=== PATIENT | male | born 1955 | race Caucasian/White ===

== ENCOUNTER 2018-06-04 13:12 | Outpatient (CLI) | payer OTHER ==
--- NOTE | 2018-06-04 15:33 | MRI ---
LEFT ELBOW MRI WITHOUT IV COTNRAST: HISTORY: A 63-year-old male with a history of left elbow pain for 5-6 years after lifting a tree with his left arm. FINDINGS: Multiplanar, multisequence MRI examination of the left elbow is performed. There is fairly marked mo tion artifact which degrades image quality. There is some focal superficial soft tissue subcutaneous thickening and fat stranding medially overlying the region of the common flexor tendon insertion reg ion. There are some less marked changes laterally at the level of the common extensor tendon inserti on. There appears to be some mild tendinopathy of both the common flexor and common extensor tendon insertions with no evidence for significant tear. There are some arthrosis changes, particularly of the radiocapitellar joint with some minimal hypertrophic osteophytosis and some subchondral cystic ch anges of the capitellum. The ulnar collateral ligament appears intact. Lateral collateral ligament complex appears intact. Biceps and triceps tendons appear intact. No other significant abnormal mar row signal. IMPRESSION: Some nonspecific subcutaneous swelling and fat stranding overlying the flexor and extensor tendon ins ertion regions as well as some associated tendinopathy without evidence of associated tear. Arthrosi s changes with some cartilage loss involving the radiocapitellar joint and some subchondral cystic ch anges and minimal hypertrophic osteophytosis of the capitellum. No evidence for other significant in ternal derangement. POS: [facility]
== END 2018-06-04 13:13 | disposition home or self-care (01) ==
LOC: SCSMRI 13:12
PROVIDERS: ATTEND Orthopaedic Surgery
DX: M25.522 Pain in left elbow (principal); M19.022 Primary osteoarthritis, left elbow; M67.922 Unspecified disorder of synovium and tendon, left upper arm; M25.722 Osteophyte, left elbow; M79.89 Other specified soft tissue disorders

== ENCOUNTER 2018-07-03 21:02 | Emergency (ER) | payer OTHER ==
[2018-07-03] MEDS ORDERED: Pantoprazole 40 MG VIAL ONE ×2 (21:29→21:41)
[2018-07-03 21:46] LABS: #Eosinphils 0.1 thou/uL (0.0-0.7); #Lymphocytes 1.3 thou/uL (1.20-3.40); #Neutrophils 12.8 thou/uL (1.40-6.50); %Basophils 0.1 % (0.0-1.0); %Eosinophils 0.4 % (0.0-10.0); %Lymphocytes 8.3 % (21.0-51.0); %Monocytes 6.5 % (0.0-10.0); %Neutrophils 84.7 % (42.0-75.0); Hemoglobin 15.1 g/dL (14.0-18.0); Mean Corpuscular HGB CONC 33.6 g/dL (32.0-36.0); Mean Corpuscular Hemoglobin 29.4 pg (27.0-31.0); Mean Corpuscular Volume 87.6 fL (78.0-98.0); Mean Platelet Volume 7.8 fL (7.4-10.4); Platelet Count 209 thou/uL (130-400); Red Blood Cell (RBC) Count 5.14 mill/uL (4.70-6.10); White Blood Cell (WBC) Count 15.2 thou/uL (4.8-10.8)
[2018-07-03 22:07] LABS: ALT (SGPT) 30 U/L (8-55); AST (SGOT) 22 U/L (5-34); Albumin 4.4 g/dL (3.4-4.8); Alkaline Phosphatase 72 U/L (40-150); Anion Gap 12 mmol/L (10-20); BUN (Urea Nitrogen) 10 mg/dL (8.4-25.7); Bilirubin, Total 1.2 mg/dL (0.2-1.2); Calc. Creatinine Clearance 0 mL/min (70-130); Calcium 9.9 mg/dL (7.8-10.44); Carbon Dioxide 27 mmol/L (23-31); Chloride 102 mmol/L (98-107); Estimated GFR-MDRD 78; Globulin 3.4 g/dL (2.4-3.5); Glucose 138 mg/dL (80-115); Lipase 20 U/L (8-78); Potassium 4.2 mmol/L (3.5-5.1); Protein, Total 7.8 g/dL (5.8-8.1); Sodium 137 mmol/L (136-145)
[2018-07-03 22:08] LABS: Bilirubin Negative (Negative); Blood, Urine Negative (Negative); Clarity CLEAR (Clear); Glucose, Urine (Dipstick) Negative (Negative); Leukocyte Negative (Negative); Nitrite Negative (Negative); Protein, Urine (Dipstick) Negative (Neg-Trace); Specific Gravity, Urine 1.009 (1.002-1.036); Urobilinogen 0.2 mg/dL (0.2-1.0)
== END 2018-07-03 23:11 | disposition home or self-care (01) ==
LOC: ERS 21:02
DX: R10.13 Epigastric pain (principal); E11.9 Type 2 diabetes mellitus without complications
CPT/HCPCS: 80053; 81003; 82274; 83690; 85025; 86850; 86900; 86901; 96374; C9113

== ENCOUNTER 2018-07-17 09:39 | Outpatient (CLI) | payer OTHER ==
--- NOTE | 2018-07-17 13:44 | CT ---
CT ABDOMEN AND PELVIS WITHOUT IV CONTRAST: HISTORY: History of generalized abdominal pain with fever. COMPARISON: None. FINDINGS: There is a large, hypodense mass with peripheral enhancement involving the medial left hepatic lobe, on image 20 of series 2, measuring 5.5 cm. There is an additional small enhancing lesion within the medial left hepatic lobe, measuring 11 mm, on image 16 of series 2. There is mild gallbladder wall thickening. The pancreas and adrenal glands are unremarkable appearing. There is a 1.6 cm cyst involving the left mid kidney. There is a smaller 1 cm cyst within the superi or pole of the left kidney. The right kidney is normal appearing. The spleen is normal appearing. No free fluid or enlarged lymph nodes are evident. There is a normal appendix in the right lower quadrant. The prostate is mildly enlarged, measuring 5 .9 cm. The bladder, rectum, and perirectal soft tissues are unremarkable. There are a few scattered colonic diverticula, without evidence of active diverticulitis. The small bowel is normal appearing. No definite acute osseous abnormality is demonstrated. There is scattered degenerative and osteoarth ritic change. IMPRESSION: 1. Gallbladder wall thickening. Recommend correlation for acute cholecystitis. A right upper quadr ant ultrasound may be helpful for further evaluation. 2. Hypodense mass involving the left hepatic lobe is incompletely characterized. A follow-up CT of the abdomen, utilizing hemangioma protocol, is recommended. An additional enhancing mass is seen wit hin the left hepatic lobe, which may reflect a small capillary hemangioma. 3. Left renal cysts. 4. Diverticulosis. 5. Prostate enlargement. POS: [facility]
== END 2018-07-17 09:40 | disposition home or self-care (01) ==
LOC: SCSCT 09:39
PROVIDERS: ATTEND Family Medicine
DX: R10.84 Generalized abdominal pain (principal); R50.9 Fever, unspecified; N28.1 Cyst of kidney, acquired; N40.0 Benign prostatic hyperplasia without lower urinary tract symptoms; K57.30 Diverticulosis of large intestine without perforation or abscess without bleeding; R16.0 Hepatomegaly, not elsewhere classified; K82.9 Disease of gallbladder, unspecified
CPT/HCPCS: 74177

== ENCOUNTER 2018-07-31 07:39 | Outpatient (CLI) | payer OTHER ==
--- NOTE | 2018-07-31 09:51 | ULT ---
COMPLETE ABDOMINAL ULTRASOUND: Comparison: CT abdomen/pelvis 07-17-18. History: Mass was seen in the liver on CT. Technique: Multiplanar grayscale and color doppler images were obtained in a complete abdominal ultra sound. FINDINGS: There is an echogenic well circumscribed mass in the left lobe of the liver measuring 4.6 cm in great est dimension. This likely represents the mass seen in the anterior aspect of the liver on prior CT. This is nonspecific but could represent a hemangioma. The smaller mass on CT posterior to this larger mass was not definitely seen. No intrahepatic biliary dilatation is seen. The gallbladder is filled with stones and sludge. There is no gallbladder wall thickening or perichol ecystic fluid. Common bile duct is normal measuring 6 mm. The visualized portions of the pancreas are unremarkable. The aorta and inferior vena cava are normal in caliber. Spleen is normal in echogenicity without focal lesion and measures 9.3 cm in length. Multiple cysts are seen in the left kidney. The largest measures 2.0 cm in size. There is no evidence of hydronephrosis or shadowing calculi. The kidneys measure 11.2 and 11.5 cm on the right and left, respectively. IMPRESSION: 1. Hepatic mass may represent a hemangioma. 2. Cholelithiasis. 3. Left renal cyst. POS: [facility]
== END 2018-07-31 07:40 | disposition home or self-care (01) ==
LOC: SCSULT 07:39
PROVIDERS: ATTEND Family Medicine
DX: R10.10 Upper abdominal pain, unspecified (principal); R93.5 Abnormal findings on diagnostic imaging of other abdominal regions, including retroperitoneum; K80.20 Calculus of gallbladder without cholecystitis without obstruction; N28.1 Cyst of kidney, acquired; R16.0 Hepatomegaly, not elsewhere classified
CPT/HCPCS: 76700

== ENCOUNTER 2018-10-15 10:13 | Day surgery (SDC) | payer OTHER ==
[2018-10-12 12:21] VITALS: BMI 26.6
[2018-10-15] MEDS ORDERED: cefOXitin Sodium/Dextrose,Iso 2 GM in Premix Bag 1 BAG IVPB SCH (10:45)
[2018-10-15] MEDS ORDERED: Bupivacaine HCl 0.25%/Epi 0.0005/PF 10 ML VIAL FS ONE ×2 (10:55→10:56)
[2018-10-15] MEDS ORDERED: Iothalamate Meglumine 60% 50 ML VIAL FS ONE (10:55)
[2018-10-15 11:43] LABS: #Eosinphils 0.4 thou/uL (0.0-0.7); #Lymphocytes 1.9 thou/uL (1.20-3.40); #Monocytes 0.7 thou/uL (0.11-0.59); #Neutrophils 6.4 thou/uL (1.40-6.50); %Basophils 0.3 % (0.0-1.0); %Eosinophils 3.8 % (0.0-10.0); %Lymphocytes 19.9 % (21.0-51.0); %Monocytes 7.7 % (0.0-10.0); %Neutrophils 68.3 % (42.0-75.0); Hemoglobin 14.6 g/dL (14.0-18.0); Mean Corpuscular HGB CONC 33.5 g/dL (32.0-36.0); Mean Corpuscular Volume 86.7 fL (78.0-98.0); Mean Platelet Volume 7.8 fL (7.4-10.4); Platelet Count 218 thou/uL (130-400); Red Blood Cell (RBC) Count 5.04 mill/uL (4.70-6.10); White Blood Cell (WBC) Count 9.4 thou/uL (4.8-10.8)
[2018-10-15] MEDS ORDERED: Midazolam HCl 2 mg/2 ml Vial ONE (11:46)
[2018-10-15] MEDS ORDERED: Lidocaine 2% Jelly 5 ML TUBE ONE (11:46)
[2018-10-15] MEDS ORDERED: Fentanyl 100 MCG/2 ML VIAL ONE (11:46)
[2018-10-15 12:08] LABS: ALT (SGPT) 27 U/L (8-55); AST (SGOT) 19 U/L (5-34); Albumin 4.3 g/dL (3.4-4.8); Alkaline Phosphatase 80 U/L (40-150); Anion Gap 15 mmol/L (10-20); BUN (Urea Nitrogen) 11 mg/dL (8.4-25.7); Bilirubin, Direct 0.4 mg/dL (0.1-0.3); Bilirubin, Total 0.7 mg/dL (0.2-1.2); Calc. Creatinine Clearance 92 mL/min (70-130); Calcium 9.6 mg/dL (7.8-10.44); Carbon Dioxide 25 mmol/L (23-31); Chloride 104 mmol/L (98-107); Estimated GFR-MDRD 79; Globulin 2.6 g/dL (2.4-3.5); Glucose 143 mg/dL (80-115); Potassium 4.6 mmol/L (3.5-5.1); Protein, Total 6.9 g/dL (5.8-8.1); Sodium 139 mmol/L (136-145)
[2018-10-15] MEDS ORDERED: Dexamethasone 20 MG/5 ML VIAL ONE (15:00)
[2018-10-15] MEDS ORDERED: Esmolol 100 MG/10 ML VIAL ONE (15:00)
[2018-10-15] MEDS ORDERED: Glycopyrrolate 0.2 MG/ML 5 ML SYRINGE ONE ×2 (15:00)
[2018-10-15] MEDS ORDERED: Lidocaine 1% PF 5 ML VIAL ONE (15:00)
[2018-10-15] MEDS ORDERED: Rocuronium Bromide 10 MG/ML (10ML VIAL) ONE (15:00)
[2018-10-15] MEDS ORDERED: ePHEDrine/0.9% NaCl/PF SYRINGE 50 mg/10 ml ONE (15:00)
[2018-10-15] MEDS ORDERED: PROPOFOL 200 MG/20 ML VIAL ONE (15:00)
[2018-10-15] MEDS ORDERED: Ondansetron PF 4 MG/2 ML Vial ONE ×2 (15:00)
[2018-10-15] MEDS ORDERED: HYDROcodone/Acetaminophen 5/325 mg Tablet ONE (16:21)
[2018-10-15] MEDS ORDERED: Promethazine HCl 25 MG/ML VIAL ONE (16:29)
--- NOTE | 2018-10-23 14:54 | OP ---
DATE OF PROCEDURE: 10/15/2018 PREOPERATIVE DIAGNOSIS: Acute cholecystitis. POSTOPERATIVE DIAGNOSIS: Acute cholecystitis. PROCEDURE PERFORMED: Laparoscopic cholecystectomy with intraoperative drain placement. ANESTHESIA: General. ESTIMATED BLOOD LOSS: Minimal. COMPLICATIONS: None. SPECIMEN: None. FINDINGS: Severe acute cholecystitis. DESCRIPTION OF PROCEDURE: The patient was taken to the operating room and laid supine on the operating room table. After general anesthetic was obtained, the abdomen was prepped and draped in a sterile fashion. A curved incision was made below the umbilicus. Cautery was used to dissect down to the umbilical fascia. Umbilical fascia was incised and held up using a Masha. The abdominal cavity was entered using a Nadine clamp. Holding stitch of Vicryl was placed on each side of the fascia. Bacon trocar was placed. High-flow pneumoperitoneum was obtained. An upper midline 5 mm port and 2 right upper quadrant 5 mm ports were placed under direct camera visualization. The gallbladder was retracted from the gallbladder fossa. The peritoneum of the gallbladder was opened anteriorly and posteriorly. The critical view triangle was seen showing only the cystic duct and cystic artery branching from medial to lateral. There were no other branching structures. Two clips were placed proximally on the cystic duct and one laterally. It was cut using laparoscopic scissors. The cystic artery was taken in the same way. Electrocautery was then used to dissect the gallbladder out of the gallbladder fossa. The gallbladder was placed in an Endo catch bag and brought out through the Bacon. There was no bleeding or bile in the liver bed. The cystic duct stump and cystic artery stump were intact, without evidence of extravasation or bleeding. All port sites were infiltrated using local anesthesia. All ports were removed under camera visualization. Pneumoperitoneum was let down. The Vicryl was used to close the fascial defect below the umbilicus. All incisions were irrigated and closed using 4-0 Monocryl and Dermabond. The patient was en route to Recovery in stable condition. All instrument counts, needle counts and lap counts were correct. Due to the patient's severe inflammatory change, a 19 round drain was brought out through one of the lateral incisions and sewn in place using 2-0 silk. It will be removed in the office in 4 to 5 days. Job ID: [id number]
== END 2018-10-15 18:28 | disposition home or self-care (01) ==
LOC: SDC 10:13
PROVIDERS: ATTEND Surgery
PROC: 0FT44ZZ Resection of Gallbladder, Percutaneous Endoscopic Approach (ICD-10-PCS; principal; 2018-10-15)
DX: K80.10 Calculus of gallbladder with chronic cholecystitis without obstruction (principal); Z79.899 Other long term (current) drug therapy
CPT/HCPCS: 80053; 80076; 85025; 88304; J0131; J1100; J2001; J2250; J2405; J2550; J2704; J3010; Q9961

== ENCOUNTER 2021-05-18 06:45 | Outpatient (CLI) | payer MEDICARE, BC | END 2021-05-18 06:46 | disposition home or self-care (01) | LOC: BICMRI 06:45 | PROVIDERS: ATTEND Family Medicine | DX: M25.512 Pain in left shoulder (principal); M25.412 Effusion, left shoulder; M19.012 Primary osteoarthritis, left shoulder; R60.0 Localized edema; S46.812A Strain of other muscles, fascia and tendons at shoulder and upper arm level, left arm, initial encounter ==

== ENCOUNTER 2022-04-04 07:46 | Outpatient (CLI) | payer MEDICARE, BC | END 2022-04-04 07:47 | disposition home or self-care (01) | LOC: BICMRI 07:46 | PROVIDERS: ATTEND Specialist | DX: M54.12 Radiculopathy, cervical region (principal); M48.03 Spinal stenosis, cervicothoracic region; M48.02 Spinal stenosis, cervical region; M25.78 Osteophyte, vertebrae; M46.02 Spinal enthesopathy, cervical region | CPT/HCPCS: 72141 ==